=== PATIENT | male | born 1990 | race Two or more races ===

== ENCOUNTER 2018-06-04 21:46 | Emergency (ER) | payer SELFPAY ==
[~2018-06-04] VITALS: Ht 167.6 cm; Wt 74.8 kg
--- NOTE | 2018-06-04 21:56 | NUR ---
PT SKIP FROM STREET FOR ETOH. PT AOX3 RR EVEN AND UNLABORED. NO SOB NOTED. NAD NOTED. NO NVD AT THIS TIME. PT GOWNED AND PLACED ON MONITOR. PT WAITING FOR MD HERRON.
--- NOTE | 2018-06-04 23:20 | NUR ---
Patient is resting comfortably in bed with eyes closed. Easily aroused. VSS
--- NOTE | 2018-06-05 04:30 | NUR ---
pt ambulatory with steady gait, to rest room. pt a/ox3, requesting to be disharged home.
--- NOTE | 2018-06-05 04:35 | NUR ---
Patient discharged to home in stable condition. Written and verbal after care instructions given. Patient verbalizes understanding of instruction.Patient is awake and alert to self, day, and place.pt ambulatory with a steady gait
[2018-06-05 05:26] VITALS: BP 124/78
== END 2018-06-05 04:35 | disposition home or self-care (01) ==
LOC: ER 21:47
DX: F10.129 Alcohol abuse with intoxication, unspecified (principal); Y90.9 Presence of alcohol in blood, level not specified
CPT/HCPCS: 82962; 99283; A4606; Z7610